=== PATIENT | male | born 1975 | race Two or more races ===

== ENCOUNTER 2019-05-31 13:44 | Outpatient (CLI) | payer OTHER ==
[2019-05-31] MEDS ORDERED: BUFFERED LIDOCAINE 10 ML SYRINGE ONE (14:09)
[2019-05-31] MEDS ORDERED: IOTHALAMATE MEGLUMINE 50 ML VIAL ONE (14:09)
[2019-05-31] MEDS ORDERED: GADOBUTROL 10 MMOL/10 ML VIAL ONE (14:10)
[2019-05-31] MEDS ORDERED: BUFFERED LIDOCAINE 10 ML SYRINGE IU ONE (14:44)
[2019-05-31] MEDS ORDERED: GADOBUTROL 10 MMOL/10 ML VIAL IVP ONE (14:44)
[2019-05-31] MEDS ORDERED: IOTHALAMATE MEGLUMINE 50 ML VIAL IVP ONE (14:44)
--- NOTE | 2019-06-01 09:16 | MRI Report ---
Reason: LEFT SHOULDER BURSITIS Procedure Date: 05/31/2019 Accession Number: [id number] / [id number] Procedure: MRI - Arthrogram Shoulder LT CPT Code: Final Report FULL RESULT: EXAM: LEFT SHOULDER MRI ARTHROGRAM WITH CONTRAST EXAM DATE: 05/31/2019 03:08 PM. CLINICAL HISTORY: Left shoulder bursitis, limited range of motion, and pain. COMPARISON: ARTHROGRAM NEEDLE PLACEMENT 05/31/2019 2:32 PM. TECHNIQUE: Multiplanar, multisequence T1-weighted and fluid-sensitive sequences of the shoulder after an arthrographic injection of dilute gadolinium, dictated under a separate exam. Other: None. FINDINGS: Acromioclavicular Region: The acromion is type II. An os acromiale variant is present. No abnormal hyperintense signal within the synchondrosis between the os acromiale and the acromion. The acromioclavicular joint is unremarkable. The coracoacromial and coracoclavicular ligaments are intact. There is no contrast or fluid in the subacromial/subdeltoid bursa. Glenohumeral Region: No subluxation. No loose bodies. The articular cartilage is unremarkable. The glenohumeral ligaments and joint capsule are unremarkable. Bone Marrow: No fracture, marrow edema or bone lesions. Labrum: The labrum is unremarkable. Biceps Tendon: The long head of the biceps tendon and biceps erika are intact. Musculature/Rotator Cuff: The supraspinatus tendon is unremarkable. There is an approximately 7 x 3 mm moderate grade partial thickness bursal surface tear at the distal end of the infraspinatus tendon. The teres minor tendon is unremarkable. There is distal subscapularis tendinosis. No edema or fatty atrophy. Other: The subcutaneous tissues are unremarkable. IMPRESSION: 1. Focal moderate grade partial-thickness bursal surface tear at the distal end of the infraspinatus tendon. Distal subscapularis tendinosis. 2. No labral tear. 3. Os acromiale variant. [facility]
--- NOTE | 2019-06-01 13:04 | XRAY Report ---
Reason: LEFT SHOULDER BURSITIS Procedure Date: 05/31/2019 Accession Number: [id number] / [id number] Procedure: FL - Arthrogram Needle Placement CPT Code: Final Report FULL RESULT: EXAM: LEFT SHOULDER ARTHROGRAPHIC INJECTION WITH FLUOROSCOPIC GUIDANCE EXAM DATE: 05/31/2019 02:32 PM. CLINICAL HISTORY: LEFT SHOULDER BURSITIS. COMPARISON: ARTHROGRAM SHOULDER LT 05/31/2019 2:47 PM. TECHNIQUE: The risks, benefits, and alternatives of the procedure were discussed with the patient. All questions were answered. Written and verbal consent were obtained. The glenohumeral joint was marked under fluoroscopy and prepped and draped in a sterile manner. Local anesthesia was performed with 1% lidocaine. A 22-gauge needle was then inserted into the glenohumeral joint. 10 mL of a solution containing 25% 1% lidocaine, 25% iodinated contrast, and a 1:200 dilution of gadolinium contrast in sterile saline was then injected. The needle was removed without immediate complication. Other: None. Fluoroscopy Time: 0.3 minutes. Number of Images: 4. FINDINGS: Bones and joints: No fracture or subluxation. Injection: Fluoroscopic images demonstrate needle placement and contrast in the glenohumeral joint. No contrast extravasation outside of the glenohumeral joint. IMPRESSION: Successful fluoroscopically guided arthrographic injection of the shoulder. [facility]
== END 2019-05-31 13:45 | disposition home or self-care (01) ==
LOC: DI 13:44
PROVIDERS: ATTEND Orthopaedic Surgery
DX: M75.52 Bursitis of left shoulder (principal); M75.82 Other shoulder lesions, left shoulder
CPT/HCPCS: 23350; 73222; 77002; A9585; Q9961